=== PATIENT | male | born 1990 | race Caucasian/White ===

== ENCOUNTER 2017-12-12 08:59 | Emergency (ER) | payer OTHER ==
[~2017-12-12] VITALS: Ht 195.6 cm; Wt 72.6 kg
[~2017-12-12 08:59] MED LIST: Bactrim Ds Tab1 EACH PO; Keflex500 MG PO
[2017-12-12] MEDS ORDERED: CEPH500 PO (09:25)
[2017-12-12] MEDS ORDERED: Bactrim Ds Tab1 EACH PO (09:25)
== END 2017-12-12 09:41 | disposition home or self-care (01) ==
LOC: ER 08:59
DX: L03.114 Cellulitis of left upper limb (principal); S60.512A Abrasion of left hand, initial encounter; F17.200 Nicotine dependence, unspecified, uncomplicated; X58.XXXA Exposure to other specified factors, initial encounter
CPT/HCPCS: 99283

== ENCOUNTER 2019-01-27 10:16 | Emergency (ER) | payer OTHER ==
[~2019-01-27] VITALS: Ht 193 cm; Wt 72.6 kg
[~2019-01-27 10:16] MED LIST changes: +CEPH500 PO
== END 2019-01-27 10:50 | disposition home or self-care (01) ==
LOC: ER 10:16
DX: J02.9 Acute pharyngitis, unspecified (principal); F17.210 Nicotine dependence, cigarettes, uncomplicated
CPT/HCPCS: 99282